=== PATIENT | female | born 1970 | race Hispanic/Latino ===

== ENCOUNTER 2017-07-01 21:48 | Emergency (ER) | payer MEDICAID, MEDICARE ==
[2017-07-01 22:34] VITALS: RESP 20
--- NOTE | 2017-07-01 22:44 | C.PDOC ---
History Of Present Illness 47 year old female presents to the ED c/o of headache that started on Saturday night. Patient states her pain is gradual, described it pounding and continued through the weekend. Patient is a heroin user. Patient denies photophobia, neck pain, fever, rash, sore throat, chronic headaches. Chief Complaint (Nursing): Headache History Per: Patient History/Exam Limitations: no limitations Onset/Duration Of Symptoms: Days Current Symptoms Are (Timing): Still Present Quality: "Pain" Preceeding Symptoms: None Recent travel outside of the [place]: No Additional History Per: Patient Past Medical History Reviewed: Historical Data, Nursing Documentation, Vital Signs Vital Signs: Last Vital Signs Temp 98.8 F 07/01/17 23:46 Pulse 80 07/01/17 23:46 Resp 20 07/01/17 23:46 BP 120/83 07/01/17 23:46 Pulse Ox 100 07/02/17 00:38 - Medical History PMH: Anxiety, Arthritis, Asthma, Back Problems, Depression, HTN, Chronic Pain Denies: Diabetes, Hepatitis, HIV, Seizures, Sexually Transmitted Disease Surgical History: Back Surgery (discectomy) Family History: States: Unknown Family Hx - Social History Hx Tobacco Use: Yes Hx Alcohol Use: No Hx Substance Use: Yes (Snorts heroin, [place]) - Immunization History Hx Tetanus Toxoid Vaccination: No Hx Influenza Vaccination: No Hx Pneumococcal Vaccination: No Review Of Systems Constitutional: Negative for: Fever, Chills Cardiovascular: Negative for: Chest Pain Respiratory: Negative for: Cough, Shortness of Breath Gastrointestinal: Negative for: Nausea, Vomiting, Abdominal Pain Skin: Negative for: Rash Neurological: Positive for: Headache. Negative for: Weakness, Numbness Physical Exam - Physical Exam Appears: Non-toxic, In Acute Distress, Other (anxious) Skin: Normal Color, Warm, Dry Head: Atraumatic, Normacephalic, Tenderness (frontal areas) Eye(s): bilateral: Normal Inspection Ear(s): Bilateral: Normal Nose: No Discharge Oral Mucosa: Moist Throat: Normal, No Erythema, No Exudate Neck: Normal ROM, Supple Chest: Symmetrical Cardiovascular: Rhythm Regular, No Murmur Respiratory: Normal Breath Sounds, No Rales, No Rhonchi, No Wheezing Gastrointestinal/Abdominal: Soft, No Tenderness, No Guarding, No Rebound Extremity: Normal ROM, No Tenderness, No Swelling Neurological/Psych: Oriented x3 Gait: Steady ED Course And Treatment O2 Sat by Pulse Oximetry: 100 (On RA) Pulse Ox Interpretation: Normal Medical Decision Making Medical Decision Making: Impression: muscle tension headache Plan: * Benadryl 25 mg IVP * Compazine 10 mg IVP * IV fluids * Toradol 30 mg IVP Pt feels much better after compazine,toradol Disposition - Disposition Referrals: [facility] [Outside] Disposition: HOME/ ROUTINE Disposition Time: 02:16 Condition: GOOD Prescriptions: Acetaminophen/Butalbital/Caf [Fioricet] 1 tab PO TID PRN #15 tab PRN Reason: Pain, Mild (1-3) Instructions: Headache, Adult (DC) Forms: [employer] (Colombian) Print Language: CYPRIOT - Clinical Impression Clinical Impression: Headache - Scribe Statement The provider has reviewed the documentation as recorded by the Scribe Reji Eagle All medical record entries made by the Scribe were at my direction and personally dictated by me. I have reviewed the chart and agree that the record accurately reflects my personal performance of the history, physical exam, medical decision making, and the department course for this patient. I have also personally directed, reviewed, and agree with the discharge instructions and disposition.
[2017-07-01] MEDS ORDERED: DiphenhydrAMINE 50 mg/ml Inj IVP STA (22:46)
[2017-07-01] MEDS ORDERED: Sodium Chloride 0.9% 1,000 ML IV ONE (22:46)
[2017-07-01] MEDS ORDERED: Sodium Chloride 0.9% 1,000 ML ONE (23:05)
[2017-07-01] MEDS ORDERED: DiphenhydrAMINE 50 mg/ml Inj ONE (23:06)
[2017-07-02 00:02] VITALS: BP 120/83; PULSE 80; TEMP 98.8
[2017-07-02 00:36] VITALS: O2SAT 100
== END 2017-07-01 23:50 | disposition home or self-care (01) ==
LOC: C.ER 21:48
DX: R51 Headache (principal)
CPT/HCPCS: 96361; 96374; 96375; 99285; J0780; J1200; J1885; J7040

== ENCOUNTER 2017-09-19 04:50 | Emergency (ER) | payer MEDICARE ==
[2017-09-19 05:08] VITALS: O2SAT 98
[2017-09-19 06:33] LABS: BASO % 0.4 % (0.0-2.0); EOS # 0.2 K/uL (0.0-0.7); EOS % 2.3 % (0.0-4.0); LYMPH # 1.5 K/uL (1.0-4.3); MEAN CELL VOLUME 84.3 fL (81.0-99.0); MEAN CORPUSCULAR HEMOGLOBIN 28.5 pg (27.0-31.0); MEAN CORPUSCULAR HGB CONC 33.8 g/dL (33.0-37.0); MEAN PLATELET VOLUME 8.4 fL (7.2-11.7); MONO # 0.7 K/uL (0.0-0.8); MONO % 7.5 % (0.0-10.0); NEUT # 7.4 K/uL (1.8-7.0); NEUT % 74.8 % (50.0-75.0); RBC 4.2 Mil/uL (3.80-5.20); RED CELL DISTRIBUTION WIDTH 14.2 % (11.5-14.5); WHITE BLOOD COUNT 9.9 K/uL (4.8-10.8)
[2017-09-19 06:34] LABS: HCG,QUALITATIVE URINE NEGATIVE (NEGATIVE)
--- NOTE | 2017-09-19 06:41 | C.PDOC ---
History Of Present Illness 47 y/o female with hx med and previous psychiatric problems biba after pt sts she was in argument with her ; pt sts she tried to hurt herself by punching herself in the head. pt denies loc and headache. denies wanting to hurt herself or anyone else at this time. no si, no hi, no ah. pt denies any physical complaints beyond her chronic back pain. pt admits to using marijuana for pain management and sts it is prescribed to her. pt endorsed drinking alcohol tonight. Time Seen by Provider: 09/19/17 05:12 Chief Complaint (Nursing): Psychiatric Evaluation History Per: Patient History/Exam Limitations: no limitations Onset/Duration Of Symptoms: Hrs Current Symptoms Are (Timing): Still Present Suicide/Self Injury Attempted (Context): Other (hit self in head) Modifying Factor(s): Alcohol Severity: Mild Associated Symptoms: denies: Suicidal Thoughts, Suicidal Plan Past Medical History Reviewed: Historical Data, Nursing Documentation, Vital Signs Vital Signs: Last Vital Signs Temp 98.9 F 09/19/17 07:10 Pulse 68 09/19/17 07:10 Resp 18 09/19/17 07:10 BP 164/97 H 09/19/17 07:10 Pulse Ox 98 09/21/17 17:46 - Medical History PMH: Anxiety, Arthritis, Asthma, Back Problems, Depression, HTN, Chronic Pain Denies: Diabetes, Hepatitis, HIV, Seizures, Sexually Transmitted Disease Surgical History: Back Surgery Family History: States: Unknown Family Hx - Social History Hx Tobacco Use: Yes Hx Alcohol Use: No Hx Substance Use: Yes (Snorts heroin, marijuana) - Immunization History Hx Tetanus Toxoid Vaccination: No Hx Influenza Vaccination: No Hx Pneumococcal Vaccination: No Review Of Systems Constitutional: Negative for: Fever, Chills Eyes: Negative for: Pain ENT: Negative for: Ear Pain, Throat Pain Cardiovascular: Negative for: Chest Pain, Palpitations Respiratory: Negative for: Cough, Shortness of Breath Gastrointestinal: Negative for: Abdominal Pain Musculoskeletal: Positive for: Back Pain (chronic). Negative for: Neck Pain Skin: Negative for: Bruising Neurological: Negative for: Weakness, Numbness Psych: Negative for: Suicidal ideation Physical Exam - Physical Exam Appears: Non-toxic, Other (cried initially, then stopped) Skin: Warm, Dry Head: Atraumatic, Normacephalic, No Tenderness, No Swelling, No Abrasion Eye(s): bilateral: Normal Inspection Nose: No Discharge Oral Mucosa: Moist Chest: Symmetrical, No Deformity, No Tenderness Cardiovascular: Rhythm Regular, No Murmur Respiratory: No Decreased Breath Sounds, No Wheezing Gastrointestinal/Abdominal: Soft, No Tenderness, No Distention, No Guarding Neurological/Psych: Oriented x3, Normal Speech, Normal Cognition ED Course And Treatment - Laboratory Results Result Diagrams: 09/19/17 06:28 09/19/17 06:28 O2 Sat by Pulse Oximetry: 98 Medical Decision Making Medical Decision Making: pt with thoughts of hurting self earlier, hit self in head, denies any current h , hi, si. initially pt on 1:1 until seen by [facility] crisis team. pt denies si, and hi to him as well;, discontinued 1:1 0655 pt reports to nurse she wants to leave and per RN,pt becoming aggressive. given labs not resulted yet, nor crisis evaluation completed, pt advised to stay until eval done and labs back. 0707 pt is medically cleared; pt able to to be discharged per Dr Irvin, and has f/u appt with her therapist at 930 am today. pt reports she will take her medications, including lasix, once she gets home. Disposition Counseled Patient/Family Regarding: Studies Performed, Diagnosis, Need For Followup - Disposition Disposition: HOME/ ROUTINE Disposition Time: 07:08 Condition: STABLE Additional Instructions: Please follow up with your therapist at 9:30 am as scheduled today. Recommended that you do not drink alcohol with the medications that you take on a daily basis. Instructions: Borderline Personality Disorder Forms: [employer] (Tajik), General Discharge Instructions - Clinical Impression Clinical Impression: Borderline personality disorder in adult, Alcohol use
[2017-09-19 06:52] LABS: BARBITURATES, UR NEGATIVE (NEGATIVE); BENZODIAZEPINES, UR NEGATIVE (NEGATIVE); OPIATES, UR NEGATIVE (NEGATIVE); PHENCYCLIDINE, UR NEGATIVE (NEGATIVE)
[2017-09-19 06:56] LABS: ALB/GLOB RATIO 1.5 (1.0-2.1); ALBUMIN 4.4 g/dL (3.5-5.0); ALT/SGPT 31 U/L (9-52); AST/SGOT 28 U/L (14-36); BLOOD UREA NITROGEN 12 mg/dL (7-17); CALCIUM 8.8 mg/dl (8.6-10.4); GFR AFRICAN-AMERICAN > 60; GFR NON-AFRICAN AMERICAN > 60
[2017-09-19 07:27] VITALS: BP 164/97; PULSE 68; RESP 18; TEMP 98.9
[2017-09-19 08:44] LABS: SQUAMOUS EPITHIAL 17 /hpf (0-5); URINE BILIRUBIN NEGATIVE (NEGATIVE); URINE BLOOD NEGATIVE (NEGATIVE); URINE CLARITY Hazy (Clear); URINE COLOR Yellow (YELLOW); URINE GLUCOSE (UA) NORMAL (Normal); URINE LEUKOCYTE ESTERASE NEG Leu/uL (Negative); URINE PROTEIN NEGATIVE (NEGATIVE); URINE UROBILINOGEN NORMAL mg/dL (0.2-1.0)
== END 2017-09-19 07:20 | disposition home or self-care (01) ==
LOC: C.ER 04:50
DX: F60.3 Borderline personality disorder (principal); Z72.89 Other problems related to lifestyle
CPT/HCPCS: 80053; 81001; 84703; 85025; 99284; G0480